=== PATIENT | male | born 1965 | race Caucasian/White ===

== ENCOUNTER 2020-12-01 13:46 | Outpatient (CLI) | payer BC | END 2020-12-01 13:47 | disposition home or self-care (01) | LOC: DTY/OP 13:46 | PROVIDERS: ATTEND Surgery | DX: E66.01 Morbid (severe) obesity due to excess calories (principal) | CPT/HCPCS: 97802 ==

== ENCOUNTER 2021-03-05 16:00 | Inpatient (IN) | payer BC ==
[2021-03-06 12:34] VITALS: BMI 37.5
[2021-03-09] MEDS ORDERED: Levofloxacin 500 mg/D5W 100 ml Premix Bag ONE (08:11)
[2021-03-09] MEDS ORDERED: Lidocaine 1% w/Epinephrine 1:100K 20 ML VIAL ONE (08:54)
[2021-03-09] MEDS ORDERED: Bupivacaine 0.25% HCL 30 ML VIAL ONE (08:54)
[2021-03-09] MEDS ORDERED: Heparin 5,000 UNITS/ML VIAL ONE (09:11)
[2021-03-09] MEDS ORDERED: Fentanyl 100 MCG/2 ML VIAL ONE ×2 (09:21→11:03)
[2021-03-09] MEDS ORDERED: Lidocaine 2% Jelly 5 ML TUBE ONE (09:22)
[2021-03-09] MEDS ORDERED: Dexamethasone 20 MG/5 ML VIAL ONE (09:44)
[2021-03-09] MEDS ORDERED: PROPOFOL 200 MG/20 ML VIAL ONE (09:44)
[2021-03-09] MEDS ORDERED: Glycopyrrolate 0.2 MG/ML 5 ML SYRINGE ONE (09:44)
[2021-03-09] MEDS ORDERED: Ondansetron PF 4 MG/2 ML Vial ONE (09:44)
[2021-03-09] MEDS ORDERED: Rocuronium Bromide 10 MG/ML (10ML VIAL) ONE (09:44)
[2021-03-09] MEDS ORDERED: ePHEDrine 50 MG/ML VIAL ONE (09:44)
[2021-03-09] MEDS ORDERED: Lidocaine 1% PF 5 ML VIAL ONE (09:44)
[2021-03-09] MEDS ORDERED: Ketorolac Tromethamine 30 MG/ML VIAL ONE (09:44)
[2021-03-09] MEDS ORDERED: Dextrose 5% in Water 1,000 ML IV PRN (11:03)
[2021-03-09] MEDS ORDERED: Promethazine HCl 25 MG/ML VIAL IM PRN ×3 (11:03→11:11)
[2021-03-09] MEDS ORDERED: hydrALAZINE 20 MG/ML VIAL SLOW IVP PRN (11:03)
[2021-03-09] MEDS ORDERED: Ondansetron PF 4 MG/2 ML Vial IVP PRN ×2 (11:03→11:11)
[2021-03-09] MEDS ORDERED: diphenhydrAMINE 50 MG/ML VIAL IVP PRN ×2 (11:03→11:11)
[2021-03-09] MEDS ORDERED: Hydrocodone-Acetamin 15 ML UDCUP PO PRN (11:03)
[2021-03-09] MEDS ORDERED: Dextrose 50% Abboject 50 ML SYRINGE SLOW IVP PRN (11:03)
[2021-03-09] MEDS ORDERED: Zolpidem Tartrate 5 MG TAB PO PRN (11:11)
[2021-03-09] MEDS ORDERED: Promethazine HCl 25 MG/ML VIAL IVPB PRN (11:11)
[2021-03-09] MEDS ORDERED: fentaNYL Citrate/PF 2,000 MCG in Sodium Chloride 0.9% 60 ML IV PRN (11:11)
[2021-03-09] MEDS ORDERED: diphenhydrAMINE 25 MG CAP PO PRN (11:11)
[2021-03-09] MEDS ORDERED: Ondansetron HCl/PF 4 MG/2 ML Vial IVP PRN (11:11)
[2021-03-09] MEDS ORDERED: Naloxone HCl 0.4 mg/ml Vial IV PRN (11:11)
[2021-03-09] MEDS ORDERED: diphenhydrAMINE 50 MG/ML VIAL IM PRN (11:11)
[2021-03-09] MEDS ORDERED: Communication Order-Pharmacy FS SCH (11:15)
[2021-03-09] MEDS: Ketorolac Tromethamine 30 MG/ML VIAL IVP SCH ×2 (13:18→17:40)
[2021-03-09] MEDS: D5 1/2 NS w/20 mEq KCL 1,000 ML IV SCH ×2 (13:19→17:48)
[2021-03-10] MEDS: D5 1/2 NS w/20 mEq KCL 1,000 ML IV SCH (00:49)
[2021-03-10] MEDS: Ketorolac Tromethamine 30 MG/ML VIAL IVP SCH ×2 (00:51→06:09)
[2021-03-10 05:05] VITALS: BP 138/80; TEMP 98.2
[2021-03-10] MEDS ORDERED: Hydrocodone-Acetamin 15 ML UDCUP PO PRN (05:09)
[2021-03-10 05:42] LABS: #Lymphocytes 1.1 thou/uL (1.20-3.40); #Monocytes 0.8 thou/uL (0.11-0.59); %Basophils 0.1 % (0.0-1.0); %Eosinophils 0.3 % (0.0-10.0); %Lymphocytes 12.5 % (21.0-51.0); %Monocytes 8.6 % (0.0-10.0); %Neutrophils 78.6 % (42.0-75.0); Hemoglobin 14.1 g/dL (14.0-18.0); Mean Corpuscular Hemoglobin 33.2 pg (27.0-31.0); Mean Corpuscular Volume 94.6 fL (78.0-98.0); Mean Platelet Volume 7.6 fL (7.4-10.4); Platelet Count 185 thou/uL (130-400); RBC Distribution Width 11.2 % (11.5-14.5); Red Blood Cell (RBC) Count 4.25 mill/uL (4.70-6.10); White Blood Cell (WBC) Count 8.9 thou/uL (4.8-10.8)
[2021-03-10 06:03] LABS: Anion Gap 10 mmol/L (10-20); BUN (Urea Nitrogen) 9 mg/dL (8.4-25.7); Calc. Creatinine Clearance 130 mL/min (70-130); Calcium 8.5 mg/dL (7.8-10.44); Carbon Dioxide 24 mmol/L (22-29); Chloride 107 mmol/L (98-107); Glucose 143 mg/dL (70-105); Potassium 3.8 mmol/L (3.5-5.1); Sodium 137 mmol/L (136-145)
[2021-03-10] MEDS ORDERED: Pantoprazole 40 MG VIAL IVP SCH (09:00)
[2021-03-10] MEDS ORDERED: Enoxaparin Sodium 40 MG/0.4 ML SYRINGE SC SCH (09:00)
== END 2021-03-10 09:29 | disposition home or self-care (01) | DRG 621 ==
LOC: SURG A 03-09 07:13
PROVIDERS: ADMIT Surgery; ATTEND Surgery
PROC: 0DB64Z3 Excision of Stomach, Percutaneous Endoscopic Approach, Vertical (ICD-10-PCS; principal; 2021-03-09)
DX: E66.01 Morbid (severe) obesity due to excess calories (principal); Z68.37 Body mass index [BMI] 37.0-37.9, adult
CPT/HCPCS: 36415; 80048; 85025; 88307; 88342; C9113; J1100; J1644; J1650; J1885; J1956; J2405; J2550; J2704; J3010; J3480; J3490; S0020